=== PATIENT | male | born 1980 | race Caucasian/White ===

== ENCOUNTER 2019-11-21 13:29 | Outpatient (CLI) | payer MEDICAID, SELFPAY ==
[2019-11-22 16:29] LABS: COVID-19 RT-PCR UVMMC Result Negative (Negative)
== END 2019-11-21 13:49 ==
PROVIDERS: PCP Family Medicine; Visit Provider Family Medicine
DX: J02.9 Acute pharyngitis, unspecified (principal)
CPT/HCPCS: U0003

== ENCOUNTER 2019-12-21 01:07 | Outpatient (CLI) | payer MEDICAID, SELFPAY ==
--- NOTE | 2019-12-21 07:51 | DI.RAD_ITS ---
EXAM: XR CHEST 2V PA LATERAL CLINICAL HISTORY: Sore throat and dyspnea,r06.00, neg covid TECHNIQUE: 2D digital imaging was performed. COMPARISON: No exams were available for comparison FINDINGS: MEDIASTINUM: Normal. HEART: Normal. PULMONARY VASCULATURE: Normal. LUNGS: Clear. PLEURAL SPACE: No pleural effusion or pneumothorax. BONE:Normal. OTHER FINDINGS:Normal. IMPRESSION: No acute pulmonary findings. DATA REPOSITORY: RADIATION DOSE DELIVERED:
== END 2019-12-21 01:27 ==
PROVIDERS: PCP Family Medicine; Visit Provider Family Medicine
DX: R06.09 Other forms of dyspnea (principal); J02.9 Acute pharyngitis, unspecified
CPT/HCPCS: 71046

== ENCOUNTER 2019-12-28 22:42 | Outpatient (REF) | payer MEDICAID, SELFPAY ==
[2019-12-28 21:10] LABS: Abs Immature Grans 0.01 k/cumm (0.0-0.09); Absolute Basophil Count 0.02 k/cumm (0.0-0.2); Absolute Eosinophil Count 0.16 k/cumm (0.0-0.7); Absolute Lymphocyte Count 1.46 k/cumm (1.2-3.4); Absolute Monocyte Count 0.47 k/cumm (0.11-0.7); Absolute Neutrophil Count 2.28 k/cumm (1.2-6.7); Basophils % 0.5; Eosinophils % 3.6; HCT 45.6 % (40.0-50.0); HGB 15.5 g/dL (13.5-17.5); Immature Grans % 0.2 %; Lymphocytes % 33.2; Mean Corpuscular Hemoglobin 31.3 pg (27.0-33.0); Mean Corpuscular Volume 92.1 fL (80-95); Mean Platelet Volume 10.8 fL (8.0-11.0); Monocytes % 10.7; Neutrophils % 51.8; Platelet Count 222 x1000/uL (130-400); RBC 4.95 m/cumm (4.50-6.00); RBC Distribution Width 12.5 % (11.8-14.1)
[2019-12-28 21:31] LABS: C-Reactive Protein 0.13 mg/dL (0.0-0.3); TSH (W/Ref FT4) 1.54 uIU/mL (0.36-3.74)
== END 2019-12-28 23:02 ==
LOC: LBN 22:42
PROVIDERS: PCP Family Medicine; Visit Provider Family Medicine
DX: R59.1 Generalized enlarged lymph nodes (principal)
CPT/HCPCS: 84443; 85025; 86140

== ENCOUNTER 2020-01-01 07:28 | Outpatient (CLI) | payer MEDICAID, SELFPAY ==
--- NOTE | 2020-01-01 13:30 | DI.US_ITS ---
EXAM: US SOFT TISSUE HEAD OR NECK CLINICAL HISTORY: RIGHT-SIDED ANTERIOR CERVICAL LYMPHADENOPATHY, R95.1, GENERALIZED ENLARGED LYMPH N ODES. TECHNIQUE: Ultrasound was performed using standard protocol. COMPARISON: No exams were available for comparison FINDINGS: Sonographic assessment utilizing grayscale and color Doppler imaging was performed and targeted to th e area of clinical concern. Lymph nodes are seen in the right neck. The lymph nodes have a benign appearance sonographically. T here is a 1.8 x 0.5 x 0.7 cm lymph node in the right neck, which corresponds to the palpable abnormal ity. No suspicious cystic or solid masses are seen in the right neck. IMPRESSION: Palpable abnormality corresponds to a 1.8 cm sonographically benign-appearing right neck lymph node. DATA REPOSITORY:
== END 2020-01-01 07:48 ==
PROVIDERS: PCP Family Medicine; Visit Provider Family Medicine
DX: R22.1 Localized swelling, mass and lump, neck (principal); R59.0 Localized enlarged lymph nodes
CPT/HCPCS: 76536

== ENCOUNTER 2021-04-10 16:16 | Outpatient (CLI) | payer MEDICAID, SELFPAY ==
--- NOTE | 2021-04-10 | DI.RAD_ITS ---
Exam(s) XR ANKLE LT COMPLETE EXAM: XR ANKLE LT COMPLETE CLINICAL HISTORY: PAIN LT ANKLE, M25.572, CONCERN FOR FRACTURE VS SPRAIN TECHNIQUE: 2D digital imaging was performed of the left ankle. Three images were obtained. AP, lat eral and oblique views were obtained. COMPARISON: No exams were available for comparison FINDINGS: BONES: There is an acute oblique fracture of the distal fibula. The fracture lies 5 mm above the ank le joint. There is 2-3 mm lateral displacement of the distal fracture. No bony destructive lesion i s seen. JOINTS:The ankle mortise is normally aligned. SOFT TISSUE: Soft tissue swelling about the ankle laterally. IMPRESSION: Mildly displaced distal fibular fracture. DATA REPOSITORY: RADIATION DOSE DELIVERED:
--- NOTE | 2021-04-10 16:30 | DI.VRAD_ITS ---
PROCEDURE INFORMATION: Exam: XR Left Ankle Exam date and time: 04/10/2021 3:29 PM Age: 41 years old Clinical indication: Injury or trauma; Fall; Blunt trauma; Ankle; Left TECHNIQUE: Imaging protocol: XR Left ankle. Views: 3 or more views. COMPARISON: None FINDINGS: Bones/joints: Acute comminuted and minimally displaced distal fibular fracture. Soft tissues: Soft tissue swelling. IMPRESSION: Acute comminuted and minimally displaced distal fibular fracture. Dictated and Authenticated by: Samir Lucero MD. Ordering:ANYA Guallpa MD
== END 2021-04-10 16:36 ==
PROVIDERS: PCP Family Medicine; Visit Provider Physician Assistant Medical
DX: M25.572 Pain in left ankle and joints of left foot (principal); S82.62XA Displaced fracture of lateral malleolus of left fibula, initial encounter for closed fracture; X58.XXXA Exposure to other specified factors, initial encounter
CPT/HCPCS: 73610

== ENCOUNTER 2021-04-21 11:39 | Outpatient (CLI) | payer MEDICAID, SELFPAY ==
--- NOTE | 2021-04-21 11:30 | DI.RAD_ITS ---
Exam(s) XR ANKLE LT COMPLETE EXAM: XR ANKLE LT COMPLETE CLINICAL HISTORY: f/u L distal fibular fractuyre TECHNIQUE: COMPARISON: CR,XR XR ANKLE LT COMPLETE from 04/10/2021 FINDINGS: Four views were obtained. Note is again made of the previously described fracture of the distal fibu la. Alignment appears unchanged comparison with examination of April 10. [facility] stress and m anual stress views show well-maintained ankle mortise. IMPRESSION: RADIATION DOSE DELIVERED: Total DLP
== END 2021-04-21 11:40 | disposition home or self-care (01) ==
LOC: DIORS 11:39
PROVIDERS: PCP Family Medicine; Referring Provider Family Medicine; Visit Provider Student in an Organized Health Care Education/Training Program
DX: S82.62XD Displaced fracture of lateral malleolus of left fibula, subsequent encounter for closed fracture with routine healing (principal)
CPT/HCPCS: 73610

== ENCOUNTER 2021-05-05 09:12 | Outpatient (CLI) | payer MEDICAID, SELFPAY ==
--- NOTE | 2021-05-05 08:00 | DI.RAD_ITS ---
Exam(s) XR ANKLE LT COMPLETE EXAM: XR ANKLE LT COMPLETE CLINICAL HISTORY: L ankle fx. TECHNIQUE: 2D digital imaging was performed. COMPARISON: CR XR ANKLE LT COMPLETE from 04/21/2021 FINDINGS: Again noted is the oblique spiral fracture of the distal fibula, unchanged. No widening of the morti se. Fracture line still visible. Talar dome appears unremarkable. Medial and posterior malleoli appear unremarkable. IMPRESSION: No radiographic change in the appearance of the distal fibular fracture site. DATA REPOSITORY: RADIATION DOSE DELIVERED:
== END 2021-05-05 09:13 | disposition home or self-care (01) ==
LOC: DIORS 09:12
PROVIDERS: PCP Family Medicine; Referring Provider Family Medicine; Visit Provider Physician Assistant
DX: S82.62XD Displaced fracture of lateral malleolus of left fibula, subsequent encounter for closed fracture with routine healing (principal)
CPT/HCPCS: 73610